=== PATIENT | male | born 1955 | race Caucasian/White ===

== ENCOUNTER 2023-07-02 15:56 | Emergency (ER) | payer MEDICARE, SELFPAY ==
[2023-07-02 15:57] VITALS: BP 171/78; PULSE 81; RESP 18; TEMP 36.5; O2SAT 100; BMI 25.0
[2023-07-02 16:45] VITALS: BP 165/72; PULSE 66; RESP 16; O2SAT 100
[2023-07-02 17:06] LABS: Absolute Lymphocyte Count 1.22 X10^3/uL (0.83-4.51); Absolute Neutrophil Count 16.7 X10^3/uL (2.0-7.7); Basophil# 0.03 X10^3/uL; Basophil% 0.2 % (0-1); Eosinophil# 0.01 X10^3/uL; Eosinophils% 0.1 % (0-5); Hemoglobin 15.4 g/dL (13.0-16.5); Lymphocyte # 1.22 X10^3/ul (0.83-4.51); Lymphocyte % 6.4 % (19-41); Mean Corp Hgb Conc 34.2 g/dL (32-36); Mean Corpuscular Hgb 30.4 pg (27.0-32.0); Mean Corpuscular Volume 88.8 fL (80-94); Mean Platelet Vol. 9.7 fl (6.2-12.0); Monocyte# 0.85 X10^3/uL; Monocyte% 4.5 % (0-10); NRBC Flagged by Analyzer 0 % (0-5); Neutrophil % 88.2 % (47-70); Platelet Count 436 K/mm3 (150-450); RBC Distribution Width CV 13.2 % (11.6-14.6); RBC Distribution Width SD 42.8 fl (35.1-43.9); Red Blood Count 5.07 M/mm3 (4.6-6.2); White Blood Count 18.9 K/mm3 (4.4-11.0)
[2023-07-02 17:16] LABS: AST(SGOT) 10 U/L (15-37); Alanine Aminotransfer ALT/SGPT 23 U/L (16-61); Albumin, Serum 4.1 g/dL (3.2-5.0); Alkaline Phosphatase 71 U/L (45-117); Anion Gap 10 (5-15); BUN 26 mg/dL (7-18); BUN/Creat Ratio 23.4 RATIO (10-20); Calcium,Total 9.5 mg/dL (8.5-10.1); Chloride 101 mmol/L (98-107); Creatinine, Serum 1.11 mg/dL (0.70-1.30); EST Glomerular Filtration Rate 70 mL/min (>60); Est Glom Filt Rate - Afr Amer 85 mL/min (>60); Estimated Creatinine Clearance 65.77 ml/min; Glucose 192 mg/dL (74-106); Potassium 3.8 mmol/L (3.5-5.1); Protein, Total 8.1 g/dL (6.4-8.2); Sodium Level 139 mmol/L (136-145)
--- NOTE | 2023-07-02 17:17 | CT_ITS ---
We are attempting to reach an attending provider to discuss findings. An addendum with communication details will be sent when the communication is complete. STUDY: CT ABDOMEN AND PELVIS WITH CONTRAST REASON FOR EXAM: Male, 68 years old. Abdominal pain RADIATION DOSAGE (If Supplied By Facility): CTDIvol = ( 14.15 ) mGy, DLP = ( 820.67 ) mGycm TECHNIQUE: Transaxial images were obtained from the dome of the diaphragm to the symphysis pubis without oral contrast. IV 100mL Isovue-370 was administered. Sagittal and coronal images were reconstructed. Individualized dose optimization techniques were used for this CT. COMPARISON: None. FINDINGS: The visualized lung bases are unremarkable. The visualized portions of the heart are within normal limits. Normal liver. Normal gallbladder and extrahepatic biliary system. There is a low attenuating cystic structure within the spleen with Hounsfield units in the range of mildly complex which may represent hemangioma. Normal pancreas. There is mild thickening of the left greater than right adrenal gland. There is a small cyst right kidney measuring 4.1 mm. 2 small to characterize. There is a focus of irregularity in the periphery of the left kidney with cortical thinning and fluid density outside the confines of the left kidney in the capsule and in the left-sided perinephric fat with associated bright density which could potentially represent extravasation of contrast in the kidney or potentially small focus, foci potentially active bleed. There is visualized left side multiple peripelvic cyst. There is a small hiatal hernia. There is a tortuous appearance of the mesentery. There is minimal distention of the small bowel. Normal small intestine. There is mild to moderate stool within the colon. There is visualized diverticulosis without visualized diverticulitis. The appendix appears normal however it extends into a right-sided inguinal hernia without evidence of inflammatory change. This can be demonstrated on image 43 series 601. And image 120 series 3. There hernia measures approximately 6.1 x 2 x 2.3 cm. Aorta is partially calcified. Normal inferior vena cava. Normal retroperitoneum. Normal urinary bladder. The prostate is enlarged and inhomogeneous with inhomogeneous enhancement measuring 5.7 x 5.2 x 5.2 cm. There is a right-sided fatty inguinal hernia containing the appendix. There is a low attenuating foci in the mid aspect of the L1 vertebral body that may represent a small hemangioma. There is multilevel disc space narrowing. There is facet arthropathy. There is degenerative change of the SI joints. There is degenerative change of the hip joints. CT/Abdomen/Pelvis W IV Cont ONLY IMPRESSION: Recommend correlation with any history of trauma or procedure. There is a inhomogeneous appearance of the periphery of the left kidney image #51 axial views series 2, Demonstrating a small focus of , capsular, and extracapsular fluid and subtle linear since centimeter hyperdensity which may represent subcentimeter foci of linear extravasation of contrast from the left kidney and potentially blood. The this area measures approximately 3.4 x 2.0 cm. The differential would include the possibility of laceration, recent biopsy, or potentially rupture of a cyst or calyx or potentially a small mass. Given correlation with urinary laboratory values. Small low attenuating structure within the medial aspect of the spleen which may represent a complex cyst or hemangioma. Hepatic steatosis. [id number] constipation diverticulosis and diverticulitis. Enlarged inhomogeneous prostate for which follow-up laboratory values and clinical exam is recommended. Multilevel degenerative change of the thoracolumbar spine. Fatty right-sided inguinal hernia containing noninflamed normal caliber appendix. Electronically Signed: Donna Kenyon MD at 18:19 EST ,
--- NOTE | 2023-07-02 17:19 | EDS_ITS ---
HPI <GIA Rodriguez - Last Filed: 07/02/23 19:10> History of Present Illness Chief Complaint: Nausea/Vomiting/Diarrhea Narrative Narrative: Patient is a 68-year-old male with history of hypertension, hyponatremia, atrial fibrillation on Xarelto hyperlipidemia history of kidney cancer who is currently cancer free presenting to the emergency department for nausea, vomiting, generalized abdominal pain for the last 2 days. Patient is from [place], was here for a , patient states he went out to dinner Sunday evening, and for the last 2 days, he had significant abdominal pain, nausea and vomiting. Patient states he feels weak, and is here for evaluation. He denies any fever or chills. PFSH <GIA Rodriguez - Last Filed: 07/02/23 19:10> [facility] Medical History (Updated 07/02/23 @ 19:[address] Jose Guadalupe Hernández MD) Diabetes Hypercholesteremia Stroke/cerebrovascular accident Home Medications ondansetron 4 mg disintegrating tablet 4 mg PO Q8H PRN PRN Nausea #10 tabs 07/02/23 [Rx Last Taken Unknown] Allergy/AdvReac Type Severity Reaction Status Date / Time No Known Allergies Allergy Verified 07/02/23 16:02 Social History Smoking Status: Former smoker ROS <GIA Rodriguez - Last Filed: 07/02/23 19:10> ROS ED ROS Narrative Constitutional: Negative for fever, chills, weight loss, weakness Eyes: Negative for vision loss, vision change, double vision ENT: Negative for any sore throat, ear pain, congestion Cardiovascular: Negative for any chest pain, tightness, palpitations Respiratory: Negative for any cough, sputum production, hemoptysis, dyspnea, dyspnea on exertion, orthopnea Gastrointestinal: Negative for any constipation, blood in stool, blood in vomit. Positive abdominal pain, nausea and vomiting, diarrhea : Negative for any urinary frequency, dysuria, retention, blood in urine Muscle skeletal: Negative for any myalgias, arthralgias, neck pain, back pain Neurological: Negative for any headache, syncope, paresthesias, dizziness Skin: Negative for any rashes, lumps, itching, abrasions, lacerations Psychiatric: Negative for any depression, anxiety, stress, suicidal ideation, homicidal ideation Hematologic: Negative for any easy bruising, excessive bruising, easy bleeding Allergies: Negative for any eczema, hives, rash EXAM <GIA Rordiguez - Last Filed: 07/02/23 19:10> Physical Exam Narrative Exam Narrative: Vital signs reviewed. Patient did have some vomiting, dry heaving during my examination HEET: Head normocephalic atraumatic, TMs clear bilaterally. Posterior pharynx is clear, moist mucous membranes. Nares clear bilaterally. Neck: Supple with no lymphadenopathy or tenderness. No signs of meningismus. Cardiac: Regular rate and rhythm no murmurs gallops or rubs, equal peripheral pulses bilaterally. Respiratory: Lungs clear to auscultation bilaterally. No chest tenderness. Abdomen: Soft, patient has slight tenderness to the right mid right upper quadrants active bowel sounds in all quadrants. He is still passing gas. Nondistended. No abdominal bruit or pulsatile masses. No hepatosplenomegaly no peritoneal signs. Extremities: No peripheral edema, no signs of gross trauma or deformity. Active full range of motion of all extremities. Neuro: Cranial nerves II through XII intact, no focal neurological deficits. Skin: Clean dry and intact with no rash, purpura, petechiae, vesicles or pustules. Backs/flank: No CVA tenderness, no midline spinal tenderness, no deformity. Psych: Normal mood and affect. No SI, HI or acute psychosis. Const Vital Signs: 07/02/23 15:57 07/02/23 16:45 07/02/23 18:00 Temperature 97.7 F L Temperature Source Temporal Pulse Rate 81 66 60 Respiratory Rate 18 16 16 Blood Pressure 171/78 H 165/72 H 151/51 H Blood Pressure Mean 109 103 84 Pulse Ox 100 100 100 Oxygen Delivery Method Room Air Room Air Room Air 07/02/23 19:09 Temperature Temperature Source Pulse Rate Respiratory Rate Blood Pressure 175/100 H Blood Pressure Mean 125 Pulse Ox 98 Oxygen Delivery Method <Dr. Jose Guadalupe Hernández MD - Last Filed: 07/02/23 19:13> Physical Exam Const Vital Signs: 07/02/23 15:57 07/02/23 16:45 07/02/23 18:00 Temperature 97.7 F L Temperature Source Temporal Pulse Rate 81 66 60 Respiratory Rate 18 16 16 Blood Pressure 171/78 H 165/72 H 151/51 H Blood Pressure Mean 109 103 84 Pulse Ox 100 100 100 Oxygen Delivery Method Room Air Room Air Room Air 07/02/23 19:09 Temperature Temperature Source Pulse Rate Respiratory Rate Blood Pressure 175/100 H Blood Pressure Mean 125 Pulse Ox 98 Oxygen Delivery Method [facility] <GIA Rodriguez - Last Filed: 07/02/23 19:10> [facility] Lab Data Labs: Laboratory Results - last 24 hr 07/02/23 07/02/23 16:40 18:00 WBC 18.9 H RBC 5.07 Hgb 15.4 Hct 45.0 MCV 88.8 MCH 30.4 MCHC 34.2 RDW Std Deviation 42.8 RDW Coeff of Ruben 13.2 Plt Count 436 MPV 9.7 Immature Gran % (Auto) 0.600 Neut % (Auto) 88.2 H Lymph % (Auto) 6.[address] [place] % (Auto) 4.5 Eos % (Auto) 0.1 Baso % (Auto) 0.2 Absolute Neuts (auto) 16.7 H Absolute Lymphs (auto) 1.22 Nucleated RBC % 0 Sodium 139 Potassium 3.8 Chloride 101 Carbon Dioxide 28.0 Anion Gap 10 BUN 26 H Creatinine 1.11 Estim Creat Clear Calc 65.77 Est GFR (MDRD) Af Amer 85 Est GFR (MDRD) Non-Af 70 BUN/Creatinine Ratio 23.4 H Glucose 192 H Calcium 9.5 Total Bilirubin 0.80 AST 10 L ALT 23 Alkaline Phosphatase 71 Total Protein 8.1 Albumin 4.1 Globulin 4.0 Albumin/Globulin Ratio 1.0 Lipase 62 Urine Color Yellow Urine Clarity Clear Urine pH 8.0 Ur Specific Irma 1.010 Urine Protein 30 H Urine Glucose (UA) 1000 H Urine Ketones 50 H Urine Occult Blood 10 H Urine Nitrite Negative Urine Bilirubin Negative Urine Urobilinogen Normal Ur Leukocyte Esterase 25 H Urine RBC 0 SEEN Urine WBC 0-5 SEEN Ur Squamous Epith Cells 0 SEEN Urine Bacteria 0 SEEN Urine Mucus 0 SEEN Radiography Diagnostic Testing: Clinical Impression(s) from Imaging Studies Abdomen/Pelvis CT 07/02/23 17:17 IMPRESSION: Recommend correlation with any history of trauma or procedure. There is a inhomogeneous appearance of the periphery of the left kidney image #51 axial views series 2, Demonstrating a small focus of , capsular, and extracapsular fluid and subtle linear since centimeter hyperdensity which may represent subcentimeter foci of linear extravasation of contrast from the left kidney and potentially blood. The this area measures approximately 3.4 x 2.0 cm. The differential would include the possibility of laceration, recent biopsy, or potentially rupture of a cyst or calyx or potentially a small mass. Given correlation with urinary laboratory values. Small low attenuating structure within the medial aspect of the spleen which may represent a complex cyst or hemangioma. Hepatic steatosis. Khee-pe-[id number] constipation diverticulosis and diverticulitis. Enlarged inhomogeneous prostate for which follow-up laboratory values and clinical exam is recommended. Multilevel degenerative change of the thoracolumbar spine. Fatty right-sided inguinal hernia containing noninflamed normal caliber appendix. Electronically Signed: Donna Kenyon MD at 18:19 EST , ADDENDUM: 07/02/23 4680 IMPRESSION: undefined Treatment and Re-Evaluation :: Patient appears to be in no obvious respiratory distress, vital signs are stable. Presenting to the emergency department with complaints of nausea, vomiting, diarrhea, generalized abdominal pain. Differential diagnosis includes gastroenteritis, viral syndrome, bowel obstruction, acute cholecystitis. Patient will receive basic laboratory values, IV fluids, IV Zofran. A CT scan of the abdomen pelvis will be obtained. All radiologic examinations were read, reviewed by the emergency department attending. From these reads, a plan of care will be put in place. Patient's CBC did show leukocytosis with a white blood count of 18.9. Patient's chemistries show glucose of 192, BUN of 26 to slightly elevated. I will add a lipase. Patient be reevaluated after IV fluids, Zofran. Patient's lipase was negative. Patient CT scan of the abdomen pelvis showed recommend correlation with history of trauma procedure the left kidney which the patient did have in January. This does look to be scar tissue however the patient is made aware and follow-up with a specialist. Slow low-attenuation structure within the medial aspect of the spleen which may represent a complex cyst or hemangioma. Hepatic steatosis. Mild to moderate constipation diverticulitis with no diverticulitis. Enlarged prostate. Multi generative change of thoracic spine. Fatty right-sided inguinal hernia containing noninflamed normal caliber appendix. Patient on reevaluation felt much better. Patient will be given a prescription for Zofran. Patient instructed to return for any worsening symptoms. All questions answered, stable for discharge. <Dr. Jose Guadalupe Hernández MD - Last Filed: 07/02/23 19:13> [facility] Narrative Medical decision making narrative: I have personally performed a face to face assessment of the patient and have reviewed the MAXIMILIANO Note. I performed a substantive portion of the visit including all aspects of the following. My mcclellan findings include: History is 68-year-old male with nausea vomiting and diarrhea that started 3 AM on Sunday morning. He thought he might have food poisoning but no one else became ill. He had a history of left renal cancer where he had resections. Exam is [well-appearing 68-year-old male. Vital signs stable afebrile. H EENT exam unremarkable. Neck nontender. Lungs clear to auscultation. Heart regular rhythm rate about 70 no murmur. Chest wall nontender. Abdomen soft, nontender, nondistended normal bowel sounds without peritoneal signs. Patient moving all 4 extremities. Calves are nontender without edema or cords. Neurologically is awake and alert. Back is nontender. No CVA tenderness.] Medical Decision Making [68-year-old male with nausea, vomiting diarrhea which I think is a viral gastroenteritis. I do not think this is food poisoning. CAT scan labs are obtained by our nurse practitioner. He has an elevated white count which may be from the nausea and vomiting. His electrolytes and liver enzymes are unremarkable. His lipase is normal. His UA is negative. The CAT scan did show the prior resection of the tumors from his left kidney. I think this is either scar tissue or chronic changes. I do not think it is extravasation. I discussed this with the radiologist. Was also discussed with the patient. Repeat exam he is doing well at 7 PM. He was treated with fluids and IV Zofran. He is comfortable being discharged to home. Currently he lives in [place] he is here with his cousin is going back to their house. I spoke to his via phone. She is actually coming into town flying in tomorrow. As long as he is doing well they will leave for home in the next several days. They know to return if he is doing worse.] Other additions or changes: [None] Lab Data Labs: Laboratory Results - last 24 hr 07/02/23 07/02/23 16:40 18:00 WBC 18.9 H RBC 5.07 Hgb 15.4 Hct 45.0 MCV 88.8 MCH 30.4 MCHC 34.2 RDW Std Deviation 42.8 RDW Coeff of Ruben 13.2 Plt Count 436 MPV 9.7 Immature Gran % (Auto) 0.600 Neut % (Auto) 88.2 H Lymph % (Auto) 6.[address] % (Auto) 4.5 Eos % (Auto) 0.1 Baso % (Auto) 0.2 Absolute Neuts (auto) 16.7 H Absolute Lymphs (auto) 1.22 Nucleated RBC % 0 Sodium 139 Potassium 3.8 Chloride 101 Carbon Dioxide 28.0 Anion Gap 10 BUN 26 H Creatinine 1.11 Estim Creat Clear Calc 65.77 Est GFR (MDRD) Af Amer 85 Est GFR (MDRD) Non-Af 70 BUN/Creatinine Ratio 23.4 H Glucose 192 H Calcium 9.5 Total Bilirubin 0.80 AST 10 L ALT 23 Alkaline Phosphatase 71 Total Protein 8.1 Albumin 4.1 Globulin 4.0 Albumin/Globulin Ratio 1.0 Lipase 62 Urine Color Yellow Urine Clarity Clear Urine pH 8.0 Ur Specific Irma 1.010 Urine Protein 30 H Urine Glucose (UA) 1000 H Urine Ketones 50 H Urine Occult Blood 10 H Urine Nitrite Negative Urine Bilirubin Negative Urine Urobilinogen Normal Ur Leukocyte Esterase 25 H Urine RBC 0 SEEN Urine WBC 0-5 SEEN Ur Squamous Epith Cells 0 SEEN Urine Bacteria 0 SEEN Urine Mucus 0 SEEN Radiography Diagnostic Testing: Clinical Impression(s) from Imaging Studies Abdomen/Pelvis CT 07/02/23 17:17 IMPRESSION: Recommend correlation with any history of trauma or procedure. There is a inhomogeneous appearance of the periphery of the left kidney image #51 axial views series 2, Demonstrating a small focus of , capsular, and extracapsular fluid and subtle linear since centimeter hyperdensity which may represent subcentimeter foci of linear extravasation of contrast from the left kidney and potentially blood. The this area measures approximately 3.4 x 2.0 cm. The differential would include the possibility of laceration, recent biopsy, or potentially rupture of a cyst or calyx or potentially a small mass. Given correlation with urinary laboratory values. Small low attenuating structure within the medial aspect of the spleen which may represent a complex cyst or hemangioma. Hepatic steatosis. Ulnk-yo-[id number] constipation diverticulosis and diverticulitis. Enlarged inhomogeneous prostate for which follow-up laboratory values and clinical exam is recommended. Multilevel degenerative change of the thoracolumbar spine. Fatty right-sided inguinal hernia containing noninflamed normal caliber appendix. Electronically Signed: Donna Kenoyn MD at 18:19 EST , ADDENDUM: 07/02/23 1831 IMPRESSION: undefined Discharge Plan Triage Chief Complaint: Nausea/Vomiting/Diarrhea ED Midlevel Provider: Adalberto Davila ED Provider: Jose Guadalupe Hernández Dx/Rx/DC Orders Clinical Impression: Viral syndrome, Nausea & vomiting, Viral gastroenteritis Instructions: ED Vomiting (Adult) Prescriptions: New ondansetron 4 mg tablet,disintegrating 4 mg PO Q8H PRN PRN (Reason: Nausea) Qty: 10 0RF Primary Care Provider: [facility] Doctor,Out of Referrals: NOT,DEFINED [Non-Staff] - Activity Restrictions/Additional Instructions: Your CT scan did mention an abnormality of your left kidney, I believe this is scar tissue from your prior surgery in January. Please follow-up with your surgeon. We believe this is scar tissue and nothing else however it is always good to get a double check. Take the nausea medicine as needed. Advance your diet as tolerated. Disposition Disposition: Home, Self Care
[2023-07-02] MEDS: 0.9% Normal Saline (1000mL) 1,000 ML 1000 ML IV (17:23)
[2023-07-02] MEDS: Ondansetron 4 MG/2 ML Vial IV (17:24)
[2023-07-02 18:00] VITALS: BP 151/51; PULSE 60; RESP 16; O2SAT 100
[2023-07-02 18:06] LABS: Lipase 62 U/L (13-75)
[2023-07-02 18:09] LABS: Bacteria 0 SEEN /hpf (None Seen); Mucous, Urine 0 SEEN /hpf (<or=2+); Red Blood Cells-Urine 0 SEEN /hpf (0-5); Squamous Epithelial Cells - UA 0 SEEN /hpf (0-5)
[2023-07-02 18:21] LABS: Color, Urine Yellow (Yellow); Glucose, Dipstick 1000 mg/dl (Normal); Ketone-Dipstick 50 mg/dl (Negative); Leukocyte Esterase-Dipstick 25 /ul (Negative); Nitrite-Dipstick Negative (Negative); Occult Blood-Urine 10 /ul (Negative); Protein-Dipstick 30 mg/dl (Negative); Urine Bilirubin Dipstick Negative (Negative); Urine Clarity Clear (Clear); Urine Urobilinogen Normal (Normal)
--- OUTSIDE RECORDS SUMMARY | 2023-07-02 18:24 | XMS RPT_ITS | CCD ---
Author Name Unknown Address [address] [facility] [address] [place] [address] Organization [facility] Care Team Providers Care Non Destructive Testing Inspector Name Role Phone DO JEAN GALLARDO Emergency Provider DARRELL THRASHER Primary Care Provider DOCTOR, NO FAMILY Primary Care Provider Unavaila ble DOCTOR, NO FAMILY Primary Care Unavailable JEAN GALLARDO Attending Unavailable JEAN GALLARDO Primary Care Unavailable JEAN GALLARDO Attending Unavailable Medications Current Medications Medication Drug Class(es) Dates Sig (Normalized) Sig (Original) acetaminophen 325 mg / HYDROcodone bitartrate 5 mg oral tablet (1 source) Opioid Agonist Start: 01-12-2023 take 1 tablet by mouth every eight hours Hydrocodone-Aceta minophen Active 1 TAB PO Q8H January 12, 2023 candesartan cilexetil 32 mg / hydroCHLOROthiazide 12.5 mg oral tablet (1 source) Thiazide Diuretic, Angiotensin 2 Receptor Emanuel Start: 01-11-2023 take 1 tablet by mouth once daily Candesartan-Rozet chlorothiazid Active 1 TAB PO Daily January 11, 2023 12:00am dapagliflozin 5 mg oral tablet (1 source) Sodium-Glucose Cotransporter 2 Inhibitor Start: 01-11-2023 take 1 tablet by mouth once daily Dapagliflozin Propanediol (Farxiga) 5 mg tablet Active 5 MG PO Daily January 11, 2023 12:00am fenofibrate 160 mg oral tablet (1 source) Peroxisome Proliferator Receptor alpha Agonist Start: 01-11-2023 take 160 mg by mouth twice daily Fenofibrate Active 160 MG PO 2 times per day January 11, 2023 12:00am lidocaine hydrochloride 20 mg/ml mucous membrane topical solution (1 source) Antiarrhythmic, Amide Local Anesthetic Start: 01-12-2023 take 1 mL by mouth three times daily Lidocaine Hcl (Lidocaine Viscous) 2 % solution Active 5 - 15 ML PO 3 times per day January 12, 2023 12:00am 24 hr metFORMIN hydrochloride 750 mg extended release oral tablet (1 source) Biguanide Start: 01-11-2023 take 750 mg by mouth twice daily Metformin Active 750 MG PO 2 times per day January 11, 2023 12:00am 24 hr metoprolol succinate 25 mg extended release oral tablet (1 source) beta-Adrenergic Emanuel Start: 01-11-2023 take 25 mg by mouth once daily Metoprolol Succinate Active 25 MG PO Daily January 11, 2023 12:00am ondansetron 4 mg disintegrating oral tablet (2 sources) Serotonin-3 Receptor Antagonist Start: 01-11-2023 take 4 mg by mouth every six hours Ondansetron Active 4 MG PO Q6H January 12, 2023 12:00am pantoprazole 40 mg delayed release oral tablet (1 source) Proton Pump Inhibitor Start: 01-12-2023 take 1 tablet by mouth once daily in the morning Pantoprazole (Protonix) 40 mg Tablet,Delayed Release (Dr/Ec) Active 40 MG PO Every morning January 12, 2023 12:00am rivaroxaban 20 mg oral tablet (1 source) Factor Xa Inhibitor Start: 01-11-2023 take 1 tablet by mouth once daily Rivaroxaban (Xarelto) 20 mg tablet Active 20 MG PO Daily January 11, 2023 12:00am sertraline 50 mg oral tablet (1 source) Serotonin Reuptake Inhibitor Start: 01-11-2023 take 50 mg by mouth once daily Sertraline Active 50 MG PO Daily January 11, 2023 12:00am verapamil hydrochloride 120 mg extended release oral tablet (1 source) Calcium Channel Emanuel Start: 01-11-2023 take 1 tablet by mouth once daily in the evening Verapamil (Calan Sr) 120 mg Tablet Extended Release Active 120 MG PO Every evening January 11, 2023 12:00am Problems Problem Classification Problem Date Documented Date Episodic/Chronic Diseases of white blood cells (1 source) Leukocytosis; Translations: [Elevated white blood cell count, unspecified] 01-12-2023 Chronic Fluid and electrolyte disorders (1 source) Moderate dehydration; Translations: [Dehydration] 01-11-2023 Episodic Gastritis and duodenitis (2 sources) Gastroduodenitis; Translations: [Gastroduodenitis, unspecified, without bleeding] 01-12-2023 Episodic Nausea and vomiting (1 source) Nausea; Translations: [Nausea] Onset: 01-12-2023 Episodic Noninfectious gastroenteritis (1 source) Gastroenteritis; Translations: [Noninfective gastroenteritis and colitis, unspecified] 01-11-2023 Episodic Nonspecific chest pain (1 source) Other chest pain; Translations: [Other chest pain] Onset: 01-11-2023 Episodic Other circulatory disease (1 source) H/O: atrial fibrillation; Translations: [Personal history of other diseases of the circulatory system] 01-11-2023 Episodic Results Test Name Value Interpretation Reference Range Facil ity Vital Signs Date Time Vital Sign Value Performing Clinician Faci lity 01-12-2023 22:03-0400 Body temperature 98.6 [degF] DO JEAN GELESH Work Phone: [facility] 01-12-2023 22:03-0400 Diastolic blood pressure 81 mm[Hg] DO JEAN GELESH Work Phone: [facility] 01-12-2023 22:03-0400 Heart rate 66 /min DO JEAN GELESH Work Phone: [facility] 01-12-2023 22:03-0400 Respiratory rate 19 /min DO JEAN GELESH Work Phone: [facility] 01-12-2023 22:03-0400 SaO2% (BldA) [Mass fraction] 96 % DO JEAN GELESH Work Phone: [facility] 01-12-2023 22:03-0400 Systolic blood pressure 165 mm[Hg] DO EJAN GELESH Work Phone: [facility] 01-12-2023 16:31-0400 Body height 177.8 cm DO JEAN GELESH Work Phone: [facility] 01-12-2023 16:31-0400 Body mass index (BMI) [Ratio] 25.8 kg/m2 DO JEAN GELESH Work Phone: [facility] 01-12-2023 16:31-0400 Body weight 81.64 kg DO JEAN GELESH Work Phone: [facility] 01-11-2023 11:30-0400 Body temperature 99.1 [degF] DO JEAN GELESH Work Phone: [facility] 01-11-2023 11:30-0400 Diastolic blood pressure 64 mm[Hg] DO JEAN GELESH Work Phone: [facility] 01-11-2023 11:30-0400 Heart rate 75 /min DO JEAN GELESH Work Phone: [facility] 01-11-2023 11:30-0400 Respiratory rate 18 /min DO JEAN GELESH Work Phone: [facility] 01-11-2023 11:30-0400 SaO2% (BldA) [Mass fraction] 96 % DO JEAN GELESH Work Phone: [facility] 01-11-2023 11:30-0400 Systolic blood pressure 155 mm[Hg] DO JEAN GELESH Work Phone: [facility] 01-11-2023 07:19-0400 Body height 177.8 cm DO JEAN GELESH Work Phone: [facility] 01-11-2023 07:19-0400 Body mass index (BMI) [Ratio] 25.8 kg/m2 DO JEAN GELESH Work Phone: [facility] 01-11-2023 07:19-0400 Body weight 81.64 kg DO JEAN GELESH Work Phone: [facility] Encounters Encounter Date Encounter Type Care Provider Facility Start: 01-12-2023 End: 01-13-2023 Emergency department patient visit NO [facility] Facility:[facility] Start: 01-12-2023 End: 01-12-2023 Emergency department patient visit DO JEAN GELESH Work Phone: [facility] Start: 01-11-2023 End: 01-11-2023 [facility] Start: 01-11-2023 End: 01-11-2023 Emergency department patient visit DO JEAN GELESH Work Phone: [facility] Procedures Date Procedure Procedure Detail Performing Clinician Start: 01-12-2023 CT of chest and abdomen DO [facility] Work Phone: Start: 01-11-2023 Diagnostic radiograp hy of abdomen DO [facility] Work Phone: Plan of Treatment Date Care Activity Detail Author Bacteria identified in Blood by Aerobe culture [facility] Bacteria identified in Blood by Culture Blood Culture [facility] Patient Education [facility] Work Phone: Patient referral [facility] Work Phone: Payers Date Payer Category Payer Medicare [id number] 2023 Private Health Insurance [id number] 2023 Self-pay Unknown [id number] Unknown [id number] Social History Date Type Detail Facility [facility]: [facility] Start: 01-12-2023 Former Smoker [facility] Start: 01-12-2023 No [facility] Start: 1955 Sex Assigned At Male [facility] Mental Status Date Assessment Result Facility 01-12-2023 Cognitive function Person;Place;Time [facility] Work Phone: 01-11-2023 Cognitive function Person;Place;Time [facility] Work Phone: Hospital Discharge instructions 01-12-2023 Note Date & Type Note Facility 01-12-2023 Hospital Discharg e instructions Additional Instructions You have a viral infection causing your nausea and vomiting and dry heaves. Yor also have some duodenitis causing your pain a nd discomfort. Take the medication prescribed for duodenitis, have a clear liquid diet for 2 to 3 days. Take the medications for nausea and pain as prescribed. [facility] Work Phone: Evaluation note Note Date & Type Note Facility Evaluation note No assessment information availa radha [facility] Work Phone: Chief Complaint and Reason for Visit Chief Complaint VOMITING/DIARRHEA,HB P NAUSEA/DRY HEAVES Advance Directives No Advanced Directives Records Found Advance Directive Response Recorded Date/ Time Does Patient Have Advance Directives? No January 12, 2023 4:47pm Code Status Full Code January 12 4:47pm Summary Purpose Family History No Family History Records Found Additional Source Comments Care Teams (unrecognized sec tion and content) Team Status: Inactive Member Role Status Dates JEAN GALLARDO DO Emergency Provider Active PRICE RAMÍREZ Primary Care Provider Active Team Status: Inactive Member Role Status Dates NO FAMILY DOCTOR Primary Care Provider Active JEAN GALLARDO DO Emergency Provider Active Goals (unrecognized section and content) Goals may be documented in a n alternate section (unrecognized sect ion and content) No Status Records Found INFORMATION SOURCE (unrecogn ized section and content) FOR RECORDS PERTAINING TO PATIENTS WHO ARE OR HAVE BEEN ENROLLED IN A CHEMICAL DEPENDENCY/SUBSTANCEABUSE PROGRAM, SOME INFORMATION MAY BE OMITTED. This clinical summary was aggregated from multiple sources. Caution should be exercised in using it in the provision of clinical care. This summary normalizes information from multiple sources, and as a consequence, information in this document may materially change the coding, format and clinical context of patient data. In addition, data may be omitted in some cases. CLINICAL DECISIONS SHOULD BE BASED ON THE PRIMARY CLINICAL RECORDS. [employer] [facility]. provides no warranty or guarantee of the accuracy or completeness of information in this document.
[2023-07-02 18:35] LABS: White Blood Cells 0-5 SEEN /hpf (0-5)
[2023-07-02 19:09] VITALS: BP 175/100; O2SAT 98
== END 2023-07-02 19:19 | disposition home or self-care (01) ==
PROVIDERS: Nurse Practitioner; Emergency Provider Emergency Medicine; Visit Provider Emergency Medicine
DX: A08.4 Viral intestinal infection, unspecified (principal); E11.9 Type 2 diabetes mellitus without complications; I10 Essential (primary) hypertension; Z87.891 Personal history of nicotine dependence; R11.2 Nausea with vomiting, unspecified; Z86.73 Personal history of transient ischemic attack (TIA), and cerebral infarction without residual deficits; E78.00 Pure hypercholesterolemia, unspecified; Z85.528 Personal history of other malignant neoplasm of kidney
CPT/HCPCS: 74177; 80053; 81001; 83690; 85025; 96361; 96374; 99283; J7030; Q9967; A4216; J2405